=== PATIENT | male | born 1995 | race Caucasian/White ===

== ENCOUNTER 2020-08-08 18:16 | Emergency (ER) | payer SELFPAY ==
[2020-08-08] MEDS ORDERED: [UNRECOGNIZED DRUG - OTHER] PO (23:10)
== END 2020-08-08 23:05 | disposition home or self-care (01) ==
LOC: ER1 18:16
DX: J40 Bronchitis, not specified as acute or chronic (principal); J06.9 Acute upper respiratory infection, unspecified; Z20.822 Contact with and (suspected) exposure to COVID-19
CPT/HCPCS: 71045; 87081; 87880; 99283; U0003

== ENCOUNTER 2021-05-02 05:50 | Emergency (ER) | payer OTHER ==
[~2021-05-02 05:50] MED LIST: [UNRECOGNIZED DRUG - OTHER] PO
[2021-05-02 06:45] LABS: RED BLOOD COUNT 5.02 M/UL (4.20-5.50); WHITE BLOOD COUNT 7.3 K/UL (4.5-11.0)
[2021-05-02 07:09] LABS: BUN/CREATININE RATIO 13 (0-10)
[2021-05-02] MEDS ORDERED: PROTONIX 40 MG40 M1 PO (09:09)
== END 2021-05-02 09:16 | disposition home or self-care (01) ==
LOC: ER1 05:50
PROVIDERS: Physician Assistant
DX: K62.5 Hemorrhage of anus and rectum (principal)
CPT/HCPCS: 71045; 80053; 82272; 85025; 96374; 99283; C9113

== ENCOUNTER 2021-11-04 21:35 | Emergency (ER) | payer SELFPAY ==
[~2021-11-04 21:35] MED LIST changes: +PROTONIX 40 MG40 M1 PO
[2021-11-05 03:46] LABS: HEMOGLOBIN 15.1 gm/dl (14.0-17.5); RED BLOOD COUNT 5.07 M/UL (4.20-5.50); WHITE BLOOD COUNT 6.6 K/UL (4.5-11.0)
[2021-11-05 04:02] LABS: BUN/CREATININE RATIO 24 (0-10)
[2021-11-05] MEDS ORDERED: BENTYL 20MG TAB20 MG PO (05:01)
[2021-11-05] MEDS ORDERED: ZOFRAN 4 MG TAB4 MG PO (05:01)
== END 2021-11-05 05:15 | disposition home or self-care (01) ==
LOC: ER1 21:35
PROVIDERS: Physician Assistant Medical
DX: R10.84 Generalized abdominal pain (principal); R19.7 Diarrhea, unspecified
CPT/HCPCS: 80053; 81001; 85025; 96374; 99284; J2405; Q9967